=== PATIENT | male | born 1970 | race Caucasian/White ===

== ENCOUNTER 2018-04-21 10:12 | Emergency (ER) | payer SELFPAY ==
[~2018-04-21] VITALS: Ht 190.5 cm; Wt 135.4 kg
[2018-04-21 10:16] VITALS: BP 157/103
[2018-04-21] MEDS ORDERED: NAPR220C2 PO (10:48)
[2018-04-21] MEDS ORDERED: SILD25TA PO (10:49)
[2018-04-21] MEDS ORDERED: LIDOCAINE-MPF 1%, 5ML INFIL ONE (12:00)
== END 2018-04-21 11:48 | disposition home or self-care (01) ==
LOC: ED 11:42
DX: K61.1 Rectal abscess (principal)
CPT/HCPCS: 46040; 99284